=== PATIENT | female | born 1985 | race American Indian/Alaskan Native ===

== ENCOUNTER 2017-12-27 00:51 | Emergency (ER) | payer MEDICAID ==
[2017-12-27 01:18] LABS: Hematocrit 41.2 % (30.3-42.9); Hemoglobin 13.6 gm/dl (10.1-14.3); Mean Corpuscular HGB Conc 33 % (30-34); Mean Corpuscular Hemoglobin 31 pg (28-32); Mean Corpuscular Volume 95 fl (79-97); Platelet Count 235 K/mm3 (140-440); Red Blood Count 4.32 M/mm3 (3.65-5.03); Red Cell Distribution Width 14.6 % (13.2-15.2)
[2017-12-27 01:36] LABS: Alanine Aminotransferase 8 units/L (7-56); Albumin 3.9 g/dL (3.9-5); BUN/Creatinine Ratio 13; Blood Urea Nitrogen 9 mg/dL (7-17); Calcium 8.9 mg/dL (8.4-10.2); Hemolysis Index 4
[2017-12-27] MEDS ORDERED: TORADOL IM ONE (02:26)
--- NOTE | 2017-12-27 02:35 | Emergency Department Report ---
ED General Adult HPI - General Chief complaint: Abdominal Pain Stated complaint: ABD PAIN, ANKLE PAIN Time Seen by Provider: 12/27/17 02:08 Source: patient Mode of arrival: Ambulatory Limitations: No Limitations - History of Present Illness Initial comments: Patient is 32 years old female with no significant past medical history presented stating that she has multiple mass in the suprapubic area this pain coming and going since she had her section 4 years ago. Patient denied any fever, nausea, vomiting or diarrhea. No vaginal discharge or vaginal bleeding. - Related Data Allergies Allergy/AdvReac Type Severity Reaction Status Date / Time No Known Allergies Allergy Unverified 12/27/17 01:02 ED Review of Systems ROS: Stated complaint: ABD PAIN, ANKLE PAIN Other details as noted in HPI Comment: All other systems reviewed and negative Constitutional: denies: chills, fever Respiratory: denies: cough, orthopnea, shortness of breath, SOB with exertion Cardiovascular: denies: chest pain, palpitations Genitourinary: denies: urgency, dysuria, frequency, hematuria Neurological: denies: headache, weakness, numbness ED Past Medical Hx - Past Medical History Previous Medical History?: No - Surgical History Past Surgical History?: No - Social History Smoking Status: Current Every Day Smoker Substance Use Type: Alcohol, Marijuana ED Physical Exam - General Limitations: No Limitations General appearance: alert, in no apparent distress - Head Head exam: Present: atraumatic, normocephalic - ENT ENT exam: Present: normal exam, normal orophraynx, mucous membranes moist - Neck Neck exam: Present: normal inspection, full ROM. Absent: tenderness, meningismus, lymphadenopathy - Respiratory Respiratory exam: Present: normal lung sounds bilaterally. Absent: respiratory distress, wheezes, rales, rhonchi, accessory muscle use, decreased breath sounds , prolonged expiratory - Cardiovascular Cardiovascular Exam: Present: regular rate, normal rhythm, normal heart sounds - GI/Abdominal GI/Abdominal exam: Present: soft, normal bowel sounds, other (multiple masses palpable at the scar, tender to palpation.). Absent: distended, tenderness, guarding, rebound, rigid, diminished bowel sounds, mass, bruit, pulsatile mass, hernia - Extremities Exam Extremities exam: Present: normal inspection, full ROM, normal capillary refill - Back Exam Back exam: Present: normal inspection, full ROM. Absent: CVA tenderness (R), CVA tenderness (L), muscle spasm - Neurological Exam Neurological exam: Present: alert, oriented X3, CN II-XII intact, normal gait - Skin Skin exam: Present: warm, intact, normal color ED Course Vital Signs 12/27/17 12/27/17 00:55 03:25 Temperature 97.7 F 98.2 F Pulse Rate 74 56 L Respiratory 18 19 Rate Blood Pressure 113/82 Blood Pressure 112/69 [Left] O2 Sat by Pulse 99 100 Oximetry ED Medical Decision Making - Lab Data Result diagrams: 12/27/17 01:04 12/27/17 01:04 - Radiology Data Radiology results: report reviewed Referring Physician: SHIRA CARSON Patient Name: JUSTIN DUVALL Date of : 1985 Sex: Female Report Date: 2017-12-27 Report Status: Finalized Findings [facility] [address] [place] [address] Ultrasound Report Signed Patient: JUSTIN DUVALL MR#: [id number] : 1985 Acct:[id number] Age/Sex: 32 / F ADM Date: 12/27/17 Loc: ED Attending Dr: Ordering Physician: SHIRA CARSON Date of Service: 12/27/17 Procedure(s): US pelvic limited Accession Number(s): [id number] cc: SHIRA CARSON FINAL REPORT PROCEDURE: US PELVIC LIMITED TECHNIQUE: Real-time transabdominal sonography in multiple planes of pelvis for a focused or limited evaluation was performed with image documentation. CPT 55061 HISTORY: r/o abscess, mass and swelling right lower quadrant/pelvis COMPARISON: No prior studies are available for comparison. FINDINGS: In the lower pelvic region just to the right of midline near the pubic area there is a circumscribed region mixed echogenicity. This measures 4.7 x 2 x 3.8 Centimeters. Posterior shadowing is noted. The findings may indicate multiple etiologies including seroma and resolving hematoma. Correlation with clinical observation is recommended. IMPRESSION: Small mixed echogenic region in the area of concern near the right lower pelvis measures up to 4.7 centimeters. This could represent sequelae from previous surgeries such is a seroma or resolving hematoma. Transcribed By: [facility] Dictated By: KARYN GRANGER MD Electronically Authenticated By: KARYN GRANGER MD Signed Date/Time: 12/27/17337 DD/ 7 TD/TT: 12/27/17337 Critical care attestation.: If time is entered above; I have spent that time in minutes in the direct care of this critically ill patient, excluding procedure time. ED Disposition Clinical Impression: Seroma complicating a procedure, Pelvic pain Disposition: TO HOME OR SELFCARE Is pt being admited?: No Condition: Stable Instructions: Chronic Pelvic Pain in Women (ED) Referrals: SAVANNA MATTHEWS MD [Primary Care Provider] - 3-5 Days
[2017-12-27 02:50] LABS: Band Neutrophils # (Manual) 0.1 K/mm3; Total Cells Counted 100
[2017-12-27 02:51] LABS: Anisocytosis 1+; Basophils % (Manual) 0 % (0.0-1.8)
[2017-12-27 03:26] VITALS: BP 112/69
[2017-12-27 03:30] LABS: Bilirubin,Urine NEG (Negative); Blood,Urine NEG (Negative); Color,Urine Yellow (Yellow); Mucus,Urine 2+ /HPF; Protein,Urine <15 mg/dL mg/dL (Negative)
--- NOTE | 2017-12-27 03:43 | Ultrasound Report ---
FINAL REPORT PROCEDURE: US PELVIC LIMITED TECHNIQUE: Real-time transabdominal sonography in multiple planes of pelvis for a focused or limited evaluation was performed with image documentation. CPT 82513 HISTORY: r/o abscess, mass and swelling right lower quadrant/pelvis COMPARISON: No prior studies are available for comparison. FINDINGS: In the lower pelvic region just to the right of midline near the pubic area there is a circumscribed region mixed echogenicity. This measures 4.7 x 2 x 3.8 Centimeters. Posterior shadowing is noted. The findings may indicate multiple etiologies including seroma and resolving hematoma. Correlation with clinical observation is recommended. IMPRESSION: Small mixed echogenic region in the area of concern near the right lower pelvis measures up to 4.7 centimeters. This could represent sequelae from previous surgeries such is a seroma or resolving hematoma.
== END 2017-12-27 04:38 | disposition home or self-care (01) ==
LOC: ED 00:51
DX: L76.34 Postprocedural seroma of skin and subcutaneous tissue following other procedure (principal); R10.2 Pelvic and perineal pain; F17.200 Nicotine dependence, unspecified, uncomplicated; F12.10 Cannabis abuse, uncomplicated
CPT/HCPCS: 36415; 76857; 80053; 81001; 85007; 85025; 96372; 99284; J1885